=== PATIENT | female | born 1985 | race Asian ===

== ENCOUNTER 2019-09-20 08:17 | Emergency (ER) | payer OTHER ==
[~2019-09-20] VITALS: Ht 167.6 cm; Wt 89.0 kg
[2019-09-20] MEDS ORDERED: ALBUTEROL (0.083%) 2.5MG/3ML NEB HHN STA (09:31)
[2019-09-20] MEDS ORDERED: IPRATROPIUM BROMIDE (0.02%) 0.5MG/2.5ML NEB HHN STA (09:31)
[2019-09-20 12:30] VITALS: BP 125/69
== END 2019-09-20 13:39 | disposition home or self-care (01) ==
LOC: ER 08:17
DX: J06.9 Acute upper respiratory infection, unspecified (principal)
CPT/HCPCS: 71045; 94640; 99283; Z7610